=== PATIENT | male | born 1990 | race Caucasian/White ===

== ENCOUNTER 2023-12-15 07:51 | Inpatient (IN) | payer OTHER ==
[2023-12-15] VITALS (9 sets, daily range): BP systolic 116; BP diastolic 82; PULSE 107; RESP 18–20; TEMP 96.3; O2SAT 93–97
[~2023-12-15] VITALS: Ht 172.7 cm; Wt 136.1 kg
[2023-12-15] MEDS: ACETAMINOPHEN EXTRA STRENGTH 500 MG TAB PO ONE (08:20)
[2023-12-15] MEDS: NACL 0.9% 1,000 ML IV ONE (08:42)
[2023-12-15 08:49] LABS: BASOPHILS # (AUTO) 0.1 K/uL (0.00-0.22); BASOPHILS % (AUTO) 0.5 % (0.0-2.0); EOSINOPHILS # (AUTO) 0.4 K/uL (0-0.4); EOSINOPHILS % (AUTO) 3.6 % (0.0-4.0); HEMATOCRIT 57.3 % (36-52); HEMOGLOBIN 19.2 g/dL (12.0-18.0); LYMPHOCYTES # (AUTO) 3.2 K/uL (2.0-11.5); LYMPHOCYTES % (AUTO) 25.5 % (20.5-51.1); MEAN CORPUSCULAR HEMOGLOBIN 28 pg (27-31); MEAN CORPUSCULAR HGB CONC 34 g/dL (33-37); MEAN CORPUSCULAR VOLUME 84.9 fL (80-94); MONOCYTES # (AUTO) 0.9 K/uL (0.8-1.0); MONOCYTES % (AUTO) 6.9 % (1.7-9.3); NEUTROPHILS # (AUTO) 7.9 K/uL (1.8-7.7); NEUTROPHILS % (AUTO) 63.5 % (42.2-75.2); PLATELET COUNT (AUTO) 262 K/uL (140-450); RED BLOOD CELL COUNT(AUTO) 6.75 MIL/uL (4.20-6.10); RED CELL DISTRIBUTION WIDTH 16.4 % (11.6-13.7); WHITE BLOOD COUNT (AUTO) 12.5 K/uL (4.8-10.8)
[2023-12-15 08:50] LABS: APPEARANCE,URINE CLEAR (CLEAR); BILIRUBIN,URINE NEGATIVE (NEGATIVE); BLOOD, URINE NEGATIVE (NEGATIVE); COLOR,URINE YELLOW (YELLOW); LEUKOCYTE ESTERASE ,URINE NEGATIVE (NEGATIVE); NITRITE, URINE NEGATIVE (NEGATIVE); PH,URINE 6.5 (5.0-9.0); PROTEIN,URINE NEGATIVE (NEGATIVE); UGLUCOSE NEGATIVE (NEGATIVE); UROBILINOGEN,URINE 0.2 EU/dL (0.2 - 1)
[2023-12-15] MEDS: KETOROLAC 30 MG/ML VIAL IVP ONE (09:03)
[2023-12-15 09:09] LABS: CARBON DIOXIDE 26.6 mmol/L (21-32); CREATININE 0.8 mg/dL (0.6-1.3)
[2023-12-15] MEDS ORDERED: ACETAMINOPHEN EXTRA STRENGTH 500 MG TAB ONE (09:32)
[2023-12-15 09:33] LABS: POTASSIUM 5.6 mmol/L (3.5-5.1)
[2023-12-15 09:40] LABS: BASOPHILS # (AUTO) 0.1 K/uL (0.00-0.22); BASOPHILS % (AUTO) 0.6 % (0.0-2.0); EOSINOPHILS # (AUTO) 0.1 K/uL (0-0.4); EOSINOPHILS % (AUTO) 1.1 % (0.0-4.0); HEMATOCRIT 53.6 % (36-52); HEMOGLOBIN 17.5 g/dL (12.0-18.0); LYMPHOCYTES # (AUTO) 1.7 K/uL (2.0-11.5); LYMPHOCYTES % (AUTO) 13.4 % (20.5-51.1); MEAN CORPUSCULAR HEMOGLOBIN 28 pg (27-31); MEAN CORPUSCULAR HGB CONC 33 g/dL (33-37); MEAN CORPUSCULAR VOLUME 85.8 fL (80-94); MONOCYTES # (AUTO) 0.9 K/uL (0.8-1.0); NEUTROPHILS # (AUTO) 9.7 K/uL (1.8-7.7); NEUTROPHILS % (AUTO) 77.9 % (42.2-75.2); PLATELET COUNT (AUTO) 222 K/uL (140-450); RED BLOOD CELL COUNT(AUTO) 6.24 MIL/uL (4.20-6.10); RED CELL DISTRIBUTION WIDTH 16.2 % (11.6-13.7); WHITE BLOOD COUNT (AUTO) 12.4 K/uL (4.8-10.8)
[2023-12-15 09:52] LABS: ANION GAP 8.4 (8-16); CALCIUM 8.4 mg/dL (8.5-10.1); CARBON DIOXIDE 30.1 mmol/L (21-32); CREATININE 0.9 mg/dL (0.6-1.3); POTASSIUM 4.5 mmol/L (3.5-5.1)
[2023-12-15 09:59] LABS: BILIRUBIN,DIRECT 0.1 mg/dL (0.0-0.3); TOTAL BILIRUBIN 0.3 mg/dL (0.0-1.0); TOTAL PROTEIN, SERUM 8.7 g/dL (6.4-8.2)
[2023-12-15] MEDS: MORPHINE SULFATE 4 MG/ML SYR IVP ONE (11:07)
[2023-12-15] MEDS ORDERED: LORazepam 2 MG/ML VIAL IVP PRN (11:20)
[2023-12-15] MEDS ORDERED: HYDROcodone/APAP 5/325 MG 1 TAB TAB PO PRN (11:20)
[2023-12-15] MEDS ORDERED: ACETAMINOPHEN 325 MG TAB PO PRN (11:20)
[2023-12-15] MEDS: NACL 0.9% 1,000 ML IV SCH (12:05)
[2023-12-15] MEDS: MORPHINE SULFATE 2 MG/ML SYR IVP PRN (15:00)
[2023-12-15] MEDS: ONDANSETRON 4 MG/2 ML VIAL IVP PRN (21:02)
[2023-12-16 04:00] VITALS: BP 130/76; PULSE 111; RESP 20; TEMP 98.2; O2SAT 93
[2023-12-16 07:00] LABS: ALBUMIN 2.9 g/dL (3.4-5.0); ANION GAP 13.4 (8-16); BASOPHILS % (AUTO) 0.2 % (0.0-2.0); CALCIUM 8.2 mg/dL (8.5-10.1); CARBON DIOXIDE 27.5 mmol/L (21-32); CREATININE 0.8 mg/dL (0.6-1.3); HEMATOCRIT 51.3 % (36-52); HEMOGLOBIN 17.1 g/dL (12.0-18.0); LYMPHOCYTES # (AUTO) 1.2 K/uL (2.0-11.5); LYMPHOCYTES % (AUTO) 7.6 % (20.5-51.1); MAGNESIUM 1.4 mg/dL (1.8-2.4); MEAN CORPUSCULAR HEMOGLOBIN 28 pg (27-31); MEAN CORPUSCULAR HGB CONC 33 g/dL (33-37); MEAN CORPUSCULAR VOLUME 84.4 fL (80-94); MONOCYTES # (AUTO) 1.3 K/uL (0.8-1.0); MONOCYTES % (AUTO) 7.8 % (1.7-9.3); NEUTROPHILS # (AUTO) 13.7 K/uL (1.8-7.7); NEUTROPHILS % (AUTO) 84.4 % (42.2-75.2); PLATELET COUNT (AUTO) 233 K/uL (140-450); POTASSIUM 3.9 mmol/L (3.5-5.1); RED BLOOD CELL COUNT(AUTO) 6.08 MIL/uL (4.20-6.10); RED CELL DISTRIBUTION WIDTH 16.4 % (11.6-13.7); TOTAL BILIRUBIN 0.9 mg/dL (0.0-1.0); TOTAL PROTEIN, SERUM 8.6 g/dL (6.4-8.2); WHITE BLOOD COUNT (AUTO) 16.2 K/uL (4.8-10.8)
[2023-12-16 08:00] VITALS: BP 132/95; PULSE 121; RESP 18; TEMP 98.8; O2SAT 94
[2023-12-16 09:00] VITALS: PULSE 121; RESP 18; O2SAT 94
[2023-12-16] MEDS: ENOXAPARIN 40 MG/0.4 ML SYR SUBQ SCH (09:01)
[2023-12-16] MEDS: PANTOPRAZOLE 40 MG INJ VIAL IVP SCH (09:39)
[2023-12-16] MEDS: MAG SULF 2000 MG/WATER PREMIX 50 ML IV ONE (09:41)
[2023-12-16] MEDS ORDERED: GEMF600T5 PO (13:43)
[2023-12-16] MEDS ORDERED: MEDS-TO-BEDS MC SCH (21:00)
== END 2023-12-16 17:40 | disposition home or self-care (01) | DRG 282 ==
LOC: MED 07:51 → MMU 11:38 → MTU 18:39
PROVIDERS: ADMIT Hospitalist; ATTEND Hospitalist
DX: K85.90 Acute pancreatitis without necrosis or infection, unspecified (principal); E44.0 Moderate protein-calorie malnutrition; R65.10 Systemic inflammatory response syndrome (SIRS) of non-infectious origin without acute organ dysfunction; E87.1 Hypo-osmolality and hyponatremia; E66.9 Obesity, unspecified; E78.1 Pure hyperglyceridemia; Z68.42 Body mass index [BMI] 45.0-49.9, adult
CPT/HCPCS: 36415; 76705; 80048; 80053; 80076; 81003; 83690; 83735; 85025; 87081; 96361; 96374; 96375; 99285; C9113; J1650; J1885; J2270; J2405; J3475